=== PATIENT | male | born 1965 | race African-American/Black ===

== ENCOUNTER 2017-06-04 16:24 | Emergency (ER) | payer OTHER ==
[~2017-06-04] VITALS: Ht 182.9 cm; Wt 74.8 kg
[~2017-06-04 16:24] MED LIST: NKM
[2017-06-04 17:05] VITALS: BP 145/85
--- NOTE | 2017-06-04 18:54 | Emergency Room Report ---
History of Present Illness General Chief Complaint: Skin Rash/Abscess Source: Patient Present Illness HPI 51-year-old male presents to the emergency department complaining of 8/10 in severity burning blistering rash to the right thigh and buttocks x2 days. Patient also reports tender right inguinal lymph nodes. Patient denies testicular pain, penile discharge, dysuria, hematuria, fevers, chills. denies abdominal pain. Patient reports history of chickenpox as a child. Patient denies recent travel or ill contacts. Denies lesions/rashes elsewhere on the body. Denies new medications or body washes or creams. Denies swelling of the lips, tongue , throat or airway. Denies wheezing, or shortness of breath. Denies recent travel, recent illness or ill contacts. denies blisters, oral lesions, or sloughing of the skin. Allergies: Coded Allergies: No Known Allergies (Unverified , 05/24/14) Patient History Past Medical History: see triage record Past Surgical History: none Pertinent Family History: none Immunizations: UTD Reviewed Nursing Documentation: PMH: Agreed, PSxH: Agreed Nursing Documentation-PMH Hx Cardiac Problems: No - goiter Review of Systems All Other Systems: negative except mentioned in HPI Physical Exam Vital Signs Date Time Temp Pulse Resp B/P (MAP) Pulse Ox O2 Delivery O2 Flow Rate FiO2 06/04/17 16:55 98.1 74 14 145/85 98 Room Air Sp02 EP Interpretation: reviewed, normal General Appearance: no apparent distress, alert, GCS 15, non-toxic Head: normocephalic, atraumatic Eyes: bilateral eye normal inspection, bilateral eye PERRL ENT: hearing grossly normal, normal pharynx, no angioedema, normal voice Neck: full range of motion, supple/symm/no masses Respiratory: lungs clear, normal breath sounds, speaking full sentences Cardiovascular #1: regular rate, rhythm Gastrointestinal: non tender, soft Musculoskeletal: back normal, gait/station normal, normal range of motion, non- tender Neurologic: alert, oriented x3, responsive, motor strength/tone normal, sensory intact, normal gait, speech normal Psychiatric: mood/affect normal Skin: normal color, warm/dry, well hydrated, rash - vessicular rash with erythema, no open or crusted lesions localized in a linear pattern following a dermatome in the right posterior glute wraping around to the lateral thigh. Lymphatic: inguinal node tender (R) Medical Decision Making PA Attestation Dr. Smiley is my supervising Physician whom patient management has been discussed with. Diagnostic Impression: Primary Impression: Shingles Qualified Codes: B02.9 - Zoster without complications ER Course 51-year-old male presents to the emergency department complaining of 8/10 in severity burning blistering rash to the right thigh and buttocks x2 days. Patient also reports tender right inguinal lymph nodes. Patient denies testicular pain, penile discharge, dysuria, hematuria, fevers, chills. denies abdominal pain. Patient reports history of chickenpox as a child. Patient denies recent travel or ill contacts. Denies lesions/rashes elsewhere on the body. Denies new medications or body washes or creams. Denies swelling of the lips, tongue , throat or airway. Denies wheezing, or shortness of breath. Denies recent travel, recent illness or ill contacts. denies blisters, oral lesions, or sloughing of the skin. Ddx considered but are not limited to cellulitis, scabies, shingles, varicella, dermatitis, urticaria, eczema, tinea, viral exanthem, SJS Vital signs: are WNL, pt. is afebrile H&PE are most consistent with non-complicated shingles outbreak of the right thigh, no ocular or facial involvement. ORDERS: none required at this time, the diagnosis is clinical ED INTERVENTIONS: None required at this time. - d/w pt. the risk of having post-herpetic neuralgia, and to avoid contact with persons who are immuno suppressed or have not had the chicken pox or VZV vaccine. d/w pt. that he will be d/c with oral anti-virals, topical lidocaine gel, and a small quantity of pain medication to use if needed. d/w pt. to return to ED with worsening or new symptoms. DISCHARGE: At this time pt. is stable for d/c to home. Will provide printed patient care instructions, and any necessary prescriptions. Care plan and follow up instructions have been discussed with the patient prior to discharge. Last Vital Signs Date Time Temp Pulse Resp B/P (MAP) Pulse Ox O2 Delivery O2 Flow Rate FiO2 06/04/17 18:42 98.1 76 14 129/76 98 Room Air Disposition: HOME, SELF-CARE Condition: Stable Scripts Hydrocodone Bit/Acetaminophen 5-325* (NORCO 5-325*) 1 Each Tablet 1 TAB ORAL Q6H Y for For Pain, #6 TAB 0 Refills Prov: Kelsey Navas 06/04/17 Lidocaine Hcl (LIDOCAINE HCL) 28.35 Gm Cream..g. 28.35 GM TP QID, #28.3 GM 2 Refills Prov: Kelsey Navas 06/04/17 Valacyclovir Hcl* (VALTREX*) 500 Mg Tablet 1000 MG ORAL TWICE A DAY for 7 Days, #14 TAB Prov: Kelsey Navas 06/04/17 Referrals: [employer] [facility],REFERRIN (PCP) Patient Instructions: Shingles Additional Instructions: Take medications as directed. Follow up with a Primary Care Provider in 3-5 days, even if your symptoms have resolved. --Please review list of primary care clinics, if you do not already have a primary care provider Return sooner to ED if new symptoms occur, or current symptoms become worse. - Please note that this Emergency Department Report was dictated using [employer] operator technology software, occasionally this can lead to erroneous entry secondary to interpretation by the dictation equipment. Kelsey Navas Jun 04, 2017 18:54
[2017-06-04] MEDS ORDERED: NORCO 5-325 TA1 EACH ORAL (18:57)
[2017-06-04] MEDS ORDERED: LIDOCAINE HC28.35 GM TP (18:57)
[2017-06-04] MEDS ORDERED: VALACYCLOVIR500 MG ORAL (18:57)
[2017-06-04 19:06] VITALS: BP 136/79
== END 2017-06-04 19:07 | disposition home or self-care (01) ==
LOC: EMR 17:36
DX: R21 Rash and other nonspecific skin eruption (principal); B02.9 Zoster without complications
CPT/HCPCS: 99284